=== PATIENT | male | born 1960 ===

== ENCOUNTER 2018-06-17 12:37 | Emergency (ER) | payer OTHER ==
[2018-06-17 12:47] VITALS: TEMP 98.4; BMI 30.4
[2018-06-17] MEDS ORDERED: SODIUM CHLORIDE 1,000 ML IV STA (13:08)
--- NOTE | 2018-06-17 13:46 | PDOC ---
History of Present Illness - General Chief Complaint: Pain, Acute Stated Complaint: SENT BY PCP Time Seen by Provider: 06/17/18 12:57 History Source: Patient Exam Limitations: No Limitations - History of Present Illness Initial Comments: 06/17/18 13:49 Patient is a 58M with history of DM here today complaining of R leg swelling for two weeks. Patient was sent in by his PMD Dr Guzmán ([phone]) due to concerns over DVT. Patient denies fevers, chills, nausea, vomiting. Patient denies trauma. Patient denies chest pain and shortness of breath. Patient denies history of blood clots, prior surgery, history of cancer. He states that he is due for a prostate biopsy because his PSA level was found to be elevated. Past History - Past Medical History Allergies/Adverse Reactions: Allergies Allergy/AdvReac Type Severity Reaction Status Date / Time No Known Allergies Allergy Verified 06/17/18 12:45 Home Medications: Ambulatory Orders Glipizide [Glucotrol Xl] 2.5 mg PO ASDIR 06/17/18 Metformin HCl [Glucophage] 500 mg PO BID 06/17/18 COPD: No Diabetes: Yes - Suicide/Smoking/Psychosocial Hx Smoking History: Never smoked Have you smoked in the past 12 months: No Information on smoking cessation initiated: No Hx Alcohol Use: No Drug/Substance Use Hx: No Substance Use Type: None Review of Systems - Review of Systems Comments:: 06/17/18 14:24 GENERAL/CONSTITUTIONAL: No fever or chills. No weakness. HEAD, EYES, EARS, NOSE AND THROAT: No change in vision. No ear pain or discharge. No sore throat. CARDIOVASCULAR: No chest pain or shortness of breath RESPIRATORY: No cough, wheezing, or hemoptysis. GASTROINTESTINAL: No nausea, vomiting, diarrhea or constipation. GENITOURINARY: No dysuria, frequency, or change in urination. MUSCULOSKELETAL: No joint denson. +R leg swelling. No neck or back pain. SKIN: No rash NEUROLOGIC: No headache, vertigo, loss of consciousness, or change in strength/ sensation. ENDOCRINE: No increased thirst. No abnormal weight change HEMATOLOGIC/LYMPHATIC: No anemia, easy bleeding, or history of blood clots. ALLERGIC/IMMUNOLOGIC: No hives or skin allergy. *Physical Exam - Vital Signs Last Vital Signs Temp Pulse Resp BP Pulse Ox 98.4 F 113 H 18 116/93 100 06/17/18 12:45 06/17/18 12:45 06/17/18 12:45 06/17/18 12:45 06/17/18 12:45 - Physical Exam Comments: 06/17/18 14:25 GENERAL: Awake, alert, and fully oriented, in no acute distress HEAD: No signs of trauma, normocephalic, atraumatic EYES: PERRLA, EOMI, sclera anicteric, conjunctiva clear ENT: Auricles normal inspection, hearing grossly normal, nares patent, oropharynx clear without exudates. Moist mucosa NECK: Normal ROM, supple, no lymphadenopathy, JVD, or masses LUNGS: No distress, speaks full sentences, clear to auscultation bilaterally HEART: Tachycardic, regular rhythm, normal S1 and S2, no murmurs, rubs or gallops, peripheral pulses normal and equal bilaterally. ABDOMEN: Soft, nontender, normoactive bowel sounds. No guarding, no rebound. No masses EXTREMITIES: Normal inspection, Normal range of motion. +edema to right leg. No clubbing or cyanosis. NEUROLOGICAL: Cranial nerves II through XII grossly intact. Normal speech, normal gait, no focal sensorimotor deficits SKIN: Warm, Dry, normal turgor, no rashes or lesions noted. Procedures - Bedside Ultrasound Bedside Ultrasound: Cardiac Other: DVT and Cardiac done Remarks: 06/17/18 14:28 Normal EF, no effusion, no gross structural abnormalities. Normal RV size. DVT study showed no proximal DVT. ED Treatment Course - LABORATORY CBC & Chemistry Diagram: 06/17/18 13:49 06/17/18 13:49 - RADIOLOGY Radiology Studies Ordered: Category Date Time Status CHEST CTA [CT] Stat CT Scan 06/17/18 13:09 Ordered CHEST X-RAY PORTABLE* [RAD] Stat Radiology 06/17/18 13:08 Completed Medical Decision Making - Medical Decision Making 06/17/18 14:29 Patient is 58M with history of DM here today with R leg swelling. Vitals notable for tachycardia. DDx includes, but is not limtied to: DVT, bennett's cyst , lymphedema. No chest pain or shortness of breath, but concern for PE given patient's tachycardia, other explanations for tachycardia include elevated glucose and dehydration. Bedside DVT study shows no DVT, bedside echo shows normal EF, no effusion, no RV strain. Will treat with fluids. Will evaluate with cardiac labs, ekg, formal dvt us. EKG shows normal sinus rhythm with rate of 93. No st elevations/depressions. Normal t wave morphology. No RBBB pattern, anterior/inferior t wave changes, S1Q3T3, no signs of RV strain. Normal axis. Normal intervals. CXR shows no acute cardiopulmonary process. 06/17/18 14:38 Laboratory Tests 06/17/18 06/17/18 06/17/18 13:49 13:49 13:49 WBC 9.7 Hgb 15.6 Plt Count 233 INR 1.08 BUN 15 Creatinine 0.8 Creat Clearance w eGFR > 60 Random Glucose 160 H Creatine Kinase 54 Troponin I < 0.02 CBC normal. CMP reassuring. BNP/Trop normal. Believe tachycardia likely 2/2 pain. 06/17/18 16:22 DVT US negative. Will discharge home. Return precautions given. Patient's HR normal with basic pain control. Patient has no shortness of breath or chest pain. *DC/Admit/Observation/Transfer Diagnosis at time of Disposition: Right leg swelling - Discharge Dispostion Disposition: HOME Condition at time of disposition: Good Decision to Admit order: No - Referrals Referrals: Diane Dunn MD [Primary Care Provider] - - Patient Instructions Additional Instructions: You were seen today in the ED for leg swelling. We did not find an emergent cause of your leg swelling today. Please follow up with your primary care doctor this week. Please return to the ED immediately if the pain worsens, you develop a fever, chest pain or shortness of breath. - Post Discharge Activity
[2018-06-17 14:04] LABS: BASO % 0.8 % (0-2.0); EOS % 3.5 % (0-4.5); HEMATOCRIT 47.4 % (35.4-49); HEMOGLOBIN 15.6 GM/dL (11.7-16.9); LYMPH % 19.5 % (8-40); MCHC 32.9 g/dl (32.0-35.9); MEAN CELL VOLUME 85.3 fl (80-96); MEAN PLT VOLUME 8.3 fl (7.5-11.1); MONO % 9.1 % (3.8-10.2); NEUT % 67.1 % (42.8-82.8); PLATELET COUNT 233 K/MM3 (134-434); RBC 5.56 M/mm3 (4.00-5.60); WHITE BLOOD COUNT 9.7 K/mm3 (4.0-10.0)
[2018-06-17 14:18] LABS: INR 1.08 (0.83-1.09); PROTHROMBIN TIME (PATIENT) 12.7 SEC (9.7-13.0)
[2018-06-17 14:32] LABS: ALBUMIN 3.3 g/dl (3.4-5.0); ALK PHOS 62 U/L (45-117); ANION GAP 10 MMOL/L (8-16); BILIRUBIN,TOTAL 0.6 mg/dL (0.2-1); BLOOD UREA NITROGEN 15 mg/dL (7-18); CALCIUM 8.8 mg/dL (8.5-10.1); CHLORIDE 106 mmol/L (98-107); CO2 23 mmol/L (21-32); CREATININE 0.8 mg/dL (0.55-1.3); GLUCOSE,RANDOM 160 mg/dL (74-106); MAGNESIUM 2.1 mg/dL (1.8-2.4); N-TERMINAL BNP 15.5 pg/ml (5-125); SGOT/AST 17 U/L (15-37); SGPT/ALT 24 U/L (13-61); SODIUM 139 mmol/L (136-145); TOT PROT 7.3 g/dl (6.4-8.2)
[2018-06-17] MEDS ORDERED: ACETAMINOPHEN 500 MG TABLET (FP) PO ONE (14:39)
[2018-06-17] MEDS ORDERED: IBUPROFEN 400 MG TABLET (FP) PO ONE ×2 (14:40→16:11)
[2018-06-17] MEDS ORDERED: ACETAMINOPHEN 325 MG TABLET (FP) ONE (16:04)
[2018-06-17 16:10] VITALS: BP 113/80; PULSE 98
--- NOTE | 2018-06-17 23:00 | EKG ---
Test Reason : Blood Pressure : / mmHG Vent. Rate : 093 BPM Atrial Rate : 099 BPM P-R Int : 162 ms QRS Dur : 084 ms QT Int : 324 ms P-R-T Axes : 053 024 043 degrees QTc Int : 402 ms SINUS RHYTHM WITH MARKED SINUS ARRHYTHMIA OTHERWISE NORMAL ECG NO PREVIOUS ECGS AVAILABLE Confirmed by DAYTON METCALF MD ([id number]) on 06/17/2018 11:00:31 PM Referred By: Confirmed By:DAYTON METCALF MD
--- NOTE | 2018-06-19 10:34 | PDOC ---
Attending Attestation - Resident Resident Name: Johnnie Pereyra - ED Attending Attestation I have performed the following: I have examined & evaluated the patient, The case was reviewed & discussed with the resident, I agree w/resident's findings & plan - HPI HPI: 06/19/18 10:28 Mr. Franco is a 58 year old male with past medical history significant for DM and positive PSA (pending biopsy in July) sent to the emergency department by Dr. Guzmán to r/o DVT. The patient reports for the past 2 weeks hes been having lower extremity swelling, with 7/10 pain. Negative: Recent travel or long drive. Chest pain, shortness of breath or trauma or injury. PCP: Dr. Diane Dunn - Physicial Exam PE: 06/19/18 10:29 NAD, well appearing, MMM, nl conjunctiva, anicteric; neck supple. lungs clear, RRR, abdomen soft nontender. LYON x4, no focal neuro deficits. 5/5 plantar and dorsiflexion, SILT. normal color for ethnicity, WWP. +RLE tenderness and swelling. +right calf tenderness. - Medical Decision Making 06/19/18 10:29 Mr. Franco is a 58 year old male with past medical history significant for DM and positive PSA (pending biopsy in July) with RLE swelling x 2 weeks, no trauma. no cp or sob, syncope or dizziness. vitals with mild tachycardia, no fevers, likely from pain. tachy improved with appropriate analgesia. analgesia given POCUS DVT neg for proximal DVT, with good compressible veins from Femoral down to popliteal. POCUS echo with normal RV size<LV, normal EF, no pericardial effusion, normal aortic root. labs and lytes wnl, neg trop and BNP, no elevation in cardiac biomarkers. reassuring POCUS echo so doubt large PE, with neg DVT study . no respiratory or chest symptoms. Duplex confirmed no DVT. doubt DVT or PE with findings. unclear etiology of leg swelling with pathology ruled out updated Dr. Dunn, agrees with discharge plan. remained stable during ED stay and no acute events. leg elevation, analgesia, return precautions, DC in stable condition. gait stable, able to ambulate w/o difficulty. 06/19/18 10:34 Procedures - Bedside Ultrasound Remarks: 06/19/18 10:33 POCUS echo performed, indication includes chest pain/dyspnea. views obtained ( PSLA, PSS, A4, SX). Findings include normal EF, no pericardial effusion. Normal aortic root <4cm. RV<LV. Impression: no acute findings. POCUS DVT, indication RLE swelling and pain. views obtained (right Femoral vein , GSV, popliteal vein down to trifurcation). Findings: normal veins with good compression fully. Impression: no acute DVT.
== END 2018-06-17 16:40 | disposition home or self-care (01) ==
LOC: JER 12:37
PROC: 3E0337Z Introduction of Electrolytic and Water Balance Substance into Peripheral Vein, Percutaneous Approach (ICD-10-PCS; principal; 2018-06-17)
DX: R60.0 Localized edema (principal); E11.9 Type 2 diabetes mellitus without complications; Z79.84 Long term (current) use of oral hypoglycemic drugs
CPT/HCPCS: 36415; 71045-TC-FY; 80053; 82550; 83735; 83880; 84484; 85025; 85610; 93005; 93010; 93971-TC; 96360; 99282-25; J7030